=== PATIENT | male | born 1960 | race Caucasian/White ===

== ENCOUNTER 2021-07-04 18:44 | Emergency (ER) | payer OTHER ==
[~2021-07-04] VITALS: Ht 177.8 cm; Wt 68.0 kg
[2021-07-04 19:48] LABS: BASOPHILS % 0.3 % (0.0-2.0); EOSINOPHILS % 1.3 % (0.0-5.0); HEMATOCRIT. 39.9 % (42.0-52.0); HEMOGLOBIN. 13.3 g/dL (14.0-18.0); LYMPHOCYTES % 21.1 % (20.0-50.0); MEAN CORPUSCULAR HEMOGLOBIN 27.7 pg (28.0-32.0); MEAN CORPUSCULAR VOLUME 83.1 fL (80.0-94.0); MEAN PLATELET VOLUME 9.6 fl (7.4-10.4); MONOCYTES % 6.2 % (2.0-8.0); NEUTROPHILS % 71.1 % (40.0-76.0); PLATELET 262 x1000/uL (130-400); RED CELL DISTRIBUTION WIDTH 13.8 % (11.6-14.6)
[2021-07-04] MEDS ORDERED: INSULIN REGULAR (HUMULIN R) 300UNITS/3ML VIAL IV ONE (20:00)
[2021-07-04 20:10] LABS: CHLORIDE 108 mEq/L (98-107)
[2021-07-04 20:20] LABS: BETA HYDROXYBUTYRATE 0.3 mMol/L (0.0-0.3)
[2021-07-04 22:27] LABS: CLARITY URINE CLEAR (CLEAR); COLOR URINE YELLOW (YELLOW); KETONES URINE NEGATIVE (NEGATIVE); LEUKOCYTE ESTERASE URINE NEGATIVE (NEGATIVE); NITRITE URINE NEGATIVE (NEGATIVE); OCCULT BLOOD URINE NEGATIVE (NEGATIVE); PROTEIN URINE 1+ (NEGATIVE); SPECIFIC GRAVITY URINE 1.037 (1.005-1.030)
[2021-07-04 22:37] LABS: *AMPHETAMINES SCREEN URINE PRESUMTIVE POSITIVE (NEGATIVE); *BARBITURATES SCREEN URINE NEGATIVE (NEGATIVE); *BENZODIAZEPINES SCREEN URINE NEGATIVE (NEGATIVE); *COCAINE SCREEN URINE PRESUMTIVE POSITIVE (NEGATIVE)
[2021-07-04 22:38] LABS: CANNABINOID URINE SCREEN PRESUMTIVE POSITIVE (NEGATIVE); METHADONE URINE SCREEN NEGATIVE (NEGATIVE); OPIATES URINE SCREEN NEGATIVE (NEGATIVE); PHENCYCLIDINE URINE SCREEN NEGATIVE (NEGATIVE)
[2021-07-05 00:06] VITALS: BP 148/84
== END 2021-07-05 00:08 | disposition home or self-care (01) ==
LOC: ER 18:44
DX: E11.649 Type 2 diabetes mellitus with hypoglycemia without coma (principal); F19.10 Other psychoactive substance abuse, uncomplicated; R41.82 Altered mental status, unspecified; I49.9 Cardiac arrhythmia, unspecified
CPT/HCPCS: 36415; 71045; 80053; 80305; 80320; 81003; 82010; 82962; 83605; 83880; 84145; 84484; 85025; 87040; 87086; 93005; 96374; 99285; J1815; G0480

== ENCOUNTER 2021-07-10 09:09 | Emergency (ER) | payer OTHER ==
[~2021-07-10] VITALS: Ht 167.6 cm; Wt 58.0 kg
[2021-07-10] MEDS ORDERED: CEPH500C2 PO (10:54)
[2021-07-10] MEDS ORDERED: SULF1TAB48 MT (10:54)
[2021-07-10] MEDS ORDERED: ACET-2708 MT (10:55)
[2021-07-10 11:05] VITALS: BP 120/78
== END 2021-07-10 11:05 | disposition home or self-care (01) ==
LOC: ER 09:09
DX: Z48.02 Encounter for removal of sutures (principal); E11.9 Type 2 diabetes mellitus without complications; I10 Essential (primary) hypertension
CPT/HCPCS: 82962; 99282

== ENCOUNTER 2022-10-13 11:24 | Inpatient (IN) | payer MEDICAID, OTHER ==
[~2022-10-13] VITALS: Ht 165.1 cm; Wt 59.6 kg
[~2022-10-13 11:24] MED LIST: ACET-2708 MT; CEPH500C2 PO; SULF1TAB48 MT
[2022-10-13] MEDS ORDERED: IBUPROFEN 600MG TABLET PO STA (13:07)
[2022-10-13] MEDS ORDERED: SODIUM CHLORIDE 0.9% 1,000 ML IV ONE (15:15)
[2022-10-13] MEDS ORDERED: PIPERACILLIN/TAZ 3.375G PREMIX 50 ML IV NR (15:15)
[2022-10-13] MEDS ORDERED: VANCOMYCIN 1,000 MG in DEXT 5% WATER 250 ML IV NR (15:30)
[2022-10-13] MEDS ORDERED: VANCOMYCIN IV NR (15:30)
[2022-10-13] MEDS ORDERED: DEXT 5% IV NR (15:30)
[2022-10-13] MEDS ORDERED: WATER IV NR (15:30)
[2022-10-13 15:50] LABS: BASOPHILS % 0.5 % (0.0-2.0); EOSINOPHILS % 0.6 % (0.0-5.0); HEMATOCRIT. 37.8 % (42.0-52.0); HEMOGLOBIN. 12.7 g/dL (14.0-18.0); LYMPHOCYTES % 11.9 % (20.0-50.0); MEAN CORPUSCULAR HEMOGLOBIN 27.1 pg (28.0-32.0); MEAN CORPUSCULAR VOLUME 80.8 fL (80.0-94.0); MEAN PLATELET VOLUME 8.7 fl (7.4-10.4); MONOCYTES % 6.6 % (2.0-8.0); NEUTROPHILS % 80.4 % (40.0-76.0); PLATELET 417 x1000/uL (130-400); RED BLOOD CELL COUNT 4.68 mill/uL (4.7-6.1); RED CELL DISTRIBUTION WIDTH 15.3 % (11.6-14.6)
[2022-10-13 15:53] LABS: PROTHROMBIN TIME 10.7 sec (9.6-11.0)
[2022-10-13 15:54] LABS: CHLORIDE 102 mEq/L (98-107)
[2022-10-13 17:30] LABS: CLARITY URINE CLEAR (CLEAR); COLOR URINE YELLOW (YELLOW); KETONES URINE NEGATIVE (NEGATIVE); LEUKOCYTE ESTERASE URINE NEGATIVE (NEGATIVE); NITRITE URINE NEGATIVE (NEGATIVE); OCCULT BLOOD URINE NEGATIVE (NEGATIVE); PH URINE 6.5 (4.5-8.0); PROTEIN URINE 2+ (NEGATIVE)
[2022-10-13 22:00] VITALS: BP 141/64
[2022-10-13] MEDS ORDERED: DEXTROSE 50% WATER 50ML SYRINGE IV PRN (22:45)
[2022-10-14] MEDS: VANCOMYCIN 750MG PREMIX 150 ML IV SCH ×2 (00:59→11:40)
[2022-10-14] MEDS: PIPERACILLIN/TAZOBACTAM 3.375 G in DEXTROSE 5% WATER 50 ML IV SCH ×3 (05:11→21:27)
[2022-10-14] MEDS: BLOOD SUGAR DIAGNOSTIC STRIP TEST SCH ×4 (06:34→21:26)
[2022-10-14 08:00] VITALS: BP 178/96
[2022-10-14] MEDS: LISINOPRIL 20MG TABLET PO SCH (08:39)
[2022-10-14] MEDS: ENOXAPARIN 40MG/0.4ML SYR SUBCUT SCH (08:42)
[2022-10-14] MEDS: INSULIN LISPRO 100 UNITS/ML SUBCUT SCH ×4 (08:44→21:37)
[2022-10-14 08:45] LABS: BASOPHILS % 0.4 % (0.0-2.0); EOSINOPHILS % 0.8 % (0.0-5.0); HEMATOCRIT. 36.6 % (42.0-52.0); HEMOGLOBIN. 12.3 g/dL (14.0-18.0); LYMPHOCYTES % 10.5 % (20.0-50.0); MEAN CORPUSCULAR HEMOGLOBIN 27.5 pg (28.0-32.0); MEAN CORPUSCULAR VOLUME 81.7 fL (80.0-94.0); MEAN PLATELET VOLUME 9.4 fl (7.4-10.4); NEUTROPHILS % 80.3 % (40.0-76.0); PLATELET 352 x1000/uL (130-400); RED BLOOD CELL COUNT 4.48 mill/uL (4.7-6.1); RED CELL DISTRIBUTION WIDTH 15.4 % (11.6-14.6)
[2022-10-14] MEDS ORDERED: INFLUENZA VACCINE 05/PF 0.5 ML SYRINGE IM ONE (09:00)
[2022-10-14 09:20] LABS: CHLORIDE 106 mEq/L (98-107)
[2022-10-14 09:26] LABS: HDL CHOLESTEROL 41 mg/dL (40-59); LDL CHOLESTEROL 82 mg/dL (5-100)
[2022-10-14] MEDS: INSULIN GLARGINE 100 UNITS/ML SUBCUT SCH ×2 (10:34→21:36)
[2022-10-14 12:28] VITALS: BP 140/79
[2022-10-14 16:28] VITALS: BP 153/81
[2022-10-14 20:00] VITALS: BP 132/79
[2022-10-15] VITALS: BP 157/65
[2022-10-15] MEDS: VANCOMYCIN 750MG PREMIX 150 ML IV SCH ×2 (01:21→12:51)
[2022-10-15 04:00] VITALS: BP 163/74
[2022-10-15] MEDS: PIPERACILLIN/TAZOBACTAM 3.375 G in DEXTROSE 5% WATER 50 ML IV SCH ×3 (05:41→21:38)
[2022-10-15] MEDS: CLONIDINE 0.1MG TABLET PO PRN (06:02)
[2022-10-15] MEDS: BLOOD SUGAR DIAGNOSTIC STRIP TEST SCH ×4 (08:16→21:32)
[2022-10-15] MEDS: ENOXAPARIN 40MG/0.4ML SYR SUBCUT SCH (08:35)
[2022-10-15] MEDS: LISINOPRIL 20MG TABLET PO SCH ×2 (08:35→19:52)
[2022-10-15] MEDS: INSULIN LISPRO 100 UNITS/ML SUBCUT SCH ×4 (08:37→21:00)
[2022-10-15] MEDS: INSULIN GLARGINE 100 UNITS/ML SUBCUT SCH ×2 (12:53→21:45)
[2022-10-15 19:08] LABS: *AMPHETAMINES SCREEN URINE PRESUMTIVE POSITIVE (NEGATIVE); *BARBITURATES SCREEN URINE NEGATIVE (NEGATIVE); *BENZODIAZEPINES SCREEN URINE NEGATIVE (NEGATIVE); *COCAINE SCREEN URINE NEGATIVE (NEGATIVE); CANNABINOID URINE SCREEN NEGATIVE (NEGATIVE); METHADONE URINE SCREEN NEGATIVE (NEGATIVE); OPIATES URINE SCREEN NEGATIVE (NEGATIVE); PHENCYCLIDINE URINE SCREEN NEGATIVE (NEGATIVE)
[2022-10-15] MEDS: ACETAMINOPHEN 325MG TABLET PO PRN (19:52)
[2022-10-15 20:00] VITALS: BP 130/57
[2022-10-16] VITALS: BP 153/77
[2022-10-16] MEDS: VANCOMYCIN 750MG PREMIX 150 ML IV SCH ×2 (01:54→13:34)
[2022-10-16] MEDS: PIPERACILLIN/TAZOBACTAM 3.375 G in DEXTROSE 5% WATER 50 ML IV SCH ×3 (05:40→21:18)
[2022-10-16] MEDS: BLOOD SUGAR DIAGNOSTIC STRIP TEST SCH ×4 (07:20→20:29)
[2022-10-16] MEDS: INSULIN LISPRO 100 UNITS/ML SUBCUT SCH ×4 (07:50→21:18)
[2022-10-16 08:00] VITALS: BP 134/64
[2022-10-16] MEDS ORDERED: LISINOPRIL 20MG TABLET PO SCH (09:00)
[2022-10-16] MEDS: LISINOPRIL 20MG TABLET PO SCH ×2 (09:34→17:55)
[2022-10-16] MEDS: ENOXAPARIN 40MG/0.4ML SYR SUBCUT SCH (09:34)
[2022-10-16] MEDS: INSULIN GLARGINE 100 UNITS/ML SUBCUT SCH ×2 (09:38→21:17)
[2022-10-16 12:00] VITALS: BP 139/64
[2022-10-16 16:00] VITALS: BP 158/71
[2022-10-16 20:00] VITALS: BP 144/62
[2022-10-17] VITALS: BP 115/58
[2022-10-17] MEDS: VANCOMYCIN 750MG PREMIX 150 ML IV SCH ×2 (01:12→11:07)
[2022-10-17 04:00] VITALS: BP 157/73
[2022-10-17] MEDS: PIPERACILLIN/TAZOBACTAM 3.375 G in DEXTROSE 5% WATER 50 ML IV SCH ×3 (05:06→22:34)
[2022-10-17] MEDS: BLOOD SUGAR DIAGNOSTIC STRIP TEST SCH ×4 (06:40→20:43)
[2022-10-17] MEDS: INSULIN LISPRO 100 UNITS/ML SUBCUT SCH ×4 (06:45→21:19)
[2022-10-17 08:00] VITALS: BP 158/83
[2022-10-17] MEDS: LISINOPRIL 20MG TABLET PO SCH ×2 (09:01→18:30)
[2022-10-17] MEDS: ENOXAPARIN 40MG/0.4ML SYR SUBCUT SCH (09:01)
[2022-10-17] MEDS: INSULIN GLARGINE 100 UNITS/ML SUBCUT SCH ×2 (09:02→21:18)
[2022-10-17] MEDS: ACETAMINOPHEN 325MG TABLET PO PRN (11:25)
[2022-10-17 12:00] VITALS: BP 137/71
[2022-10-17 16:00] VITALS: BP 132/71
[2022-10-17 20:00] VITALS: BP 163/75
[2022-10-17] MEDS: CLONIDINE 0.1MG TABLET PO PRN (21:19)
[2022-10-18] VITALS (7 sets, daily range): BP systolic 121–182; BP diastolic 64–88
[2022-10-18] MEDS: VANCOMYCIN 750MG PREMIX 150 ML IV SCH ×2 (00:11→12:00)
[2022-10-18] MEDS: PIPERACILLIN/TAZOBACTAM 3.375 G in DEXTROSE 5% WATER 50 ML IV SCH ×3 (05:33→21:01)
[2022-10-18] MEDS: CLONIDINE 0.1MG TABLET PO PRN ×2 (05:34→21:01)
[2022-10-18] MEDS: INSULIN LISPRO 100 UNITS/ML SUBCUT SCH ×4 (06:16→21:02)
[2022-10-18] MEDS: BLOOD SUGAR DIAGNOSTIC STRIP TEST SCH ×4 (06:16→20:50)
[2022-10-18] MEDS: ENOXAPARIN 40MG/0.4ML SYR SUBCUT SCH (09:06)
[2022-10-18] MEDS: LISINOPRIL 20MG TABLET PO SCH ×2 (09:06→18:01)
[2022-10-18] MEDS: INSULIN GLARGINE 100 UNITS/ML SUBCUT SCH ×2 (09:07→21:03)
[2022-10-18] MEDS ORDERED: LISI20TA31 PO (12:23)
[2022-10-18] MEDS ORDERED: LANTUSUD SUBCUT (12:23)
[2022-10-18] MEDS ORDERED: AMOX1TAB16 MT (12:23)
[2022-10-18] MEDS ORDERED: SULF1TAB48 MT (12:23)
[2022-10-19] VITALS: BP 149/60
[2022-10-19] MEDS: VANCOMYCIN 750MG PREMIX 150 ML IV SCH (00:45)
[2022-10-19 04:00] VITALS: BP 165/81
[2022-10-19] MEDS: CLONIDINE 0.1MG TABLET PO PRN (06:18)
[2022-10-19] MEDS: INSULIN LISPRO 100 UNITS/ML SUBCUT SCH ×2 (06:19→11:57)
[2022-10-19] MEDS: BLOOD SUGAR DIAGNOSTIC STRIP TEST SCH ×2 (06:19→11:32)
[2022-10-19 08:00] VITALS: BP 122/70
[2022-10-19] MEDS: ENOXAPARIN 40MG/0.4ML SYR SUBCUT SCH (09:07)
[2022-10-19] MEDS: INSULIN GLARGINE 100 UNITS/ML SUBCUT SCH (09:07)
[2022-10-19] MEDS: LISINOPRIL 20MG TABLET PO SCH (09:08)
[2022-10-19 12:00] VITALS: BP 118/72
== END 2022-10-19 13:15 | disposition home health service (06) | DRG 344 ==
LOC: ER 11:47 → 6EST 17:45 → ENRESERV 19:30 → 7EST 10-16 10:21
PROVIDERS: ADMIT Internal Medicine; ATTEND Internal Medicine
DX: E11.621 Type 2 diabetes mellitus with foot ulcer (principal); M86.8X7 Other osteomyelitis, ankle and foot; U07.1 COVID-19; E11.52 Type 2 diabetes mellitus with diabetic peripheral angiopathy with gangrene; E44.1 Mild protein-calorie malnutrition; E11.40 Type 2 diabetes mellitus with diabetic neuropathy, unspecified; D64.9 Anemia, unspecified; E11.65 Type 2 diabetes mellitus with hyperglycemia; E11.69 Type 2 diabetes mellitus with other specified complication; G40.909 Epilepsy, unspecified, not intractable, without status epilepticus; F17.210 Nicotine dependence, cigarettes, uncomplicated; I10 Essential (primary) hypertension; F14.10 Cocaine abuse, uncomplicated; F12.10 Cannabis abuse, uncomplicated; F15.10 Other stimulant abuse, uncomplicated; M20.30 Hallux varus (acquired), unspecified foot; Z71.51 Drug abuse counseling and surveillance of drug abuser; Z68.21 Body mass index [BMI] 21.0-21.9, adult; Z79.4 Long term (current) use of insulin
CPT/HCPCS: 36415; 71045; 73660; 80048; 80053; 80061; 80202; 80305; 81003; 82962; 83036; 83605; 83615; 85025; 87070; 87077; 87186; 87426; 88311; 90686; 93923; 99285; J1650; J1815; J2543; J3370; J7060

== ENCOUNTER 2024-01-23 13:54 | Inpatient (IN) | payer MEDICAID, OTHER ==
[~2024-01-23] VITALS: Ht 167.6 cm; Wt 63.5 kg
[~2024-01-23 13:54] MED LIST changes: +AMOX1TAB16 MT; -CEPH500C2 PO; +LANTUSUD SUBCUT; +LISI20TA31 PO
[2024-01-23 14:17] VITALS: O2SAT 99
[2024-01-23 15:17] LABS: BASOPHILS % 0.3 % (0.0-2.0); EOSINOPHILS % 0.9 % (0.0-5.0); HEMATOCRIT. 29.7 % (42.0-52.0); HEMOGLOBIN. 9.6 g/dL (14.0-18.0); LYMPHOCYTES % 8.4 % (20.0-50.0); MEAN CORPUSCULAR HEMOGLOBIN 26.9 pg (28.0-32.0); MEAN CORPUSCULAR HGB CONC 32.5 g/dL (31.0-37.0); MEAN CORPUSCULAR VOLUME 82.7 fL (80.0-94.0); MEAN PLATELET VOLUME 8.3 fl (7.4-10.4); MONOCYTES % 8.3 % (2.0-8.0); NEUTROPHILS % 82.1 % (40.0-76.0); PLATELET 442 x1000/uL (130-400); RED BLOOD CELL COUNT 3.59 mill/uL (4.7-6.1); RED CELL DISTRIBUTION WIDTH 13.5 % (11.6-14.6); WHITE BLOOD COUNT 9.9 x1000/uL (4.5-11.0)
[2024-01-23 15:34] LABS: ALANINE AMINOTRANSFERASE 16 IU/L (10-49); ALBUMIN 3.2 g/dL (3.2-4.8); ASPARTATE AMINOTRANSFERASE 23 IU/L (<34); BILIRUBIN TOTAL 0.2 mg/dL (0.1-1.0); CALCIUM 8.4 mg/dL (8.7-10.4); CARBON DIOXIDE 25 mEq/L (21-32); CHLORIDE 101 mEq/L (98-107); GLUCOSE 323 mg/dL (70-105); POTASSIUM 4.2 mEq/L (3.5-5.1); PROTEIN TOTAL 7.1 g/dL (6.0-8.3); SODIUM 133 mEq/L (136-145); UREA NITROGEN BLOOD 17 mg/dL (9-23)
[2024-01-23] MEDS: SODIUM CHLORIDE 0.9% 1,000 ML IV ONE (19:58)
[2024-01-23] MEDS: CEFEPIME 1,000 MG in DEXTROSE 5% WATER 50 ML IV SCH (20:06)
[2024-01-23] MEDS ORDERED: MAGNESIUM/ALUMINUM HYDROXIDE/SIMETHICONE 30ML UDC PO PRN (22:00)
[2024-01-23] MEDS ORDERED: CLONIDINE 0.1MG TABLET PO PRN (22:00)
[2024-01-23] MEDS ORDERED: ATOR20TA65 PO (22:13)
[2024-01-23] MEDS ORDERED: AMLO10TA80 PO (22:13)
[2024-01-23 23:04] VITALS: BP 139/86; PULSE 104; RESP 16; TEMP 97.8
[2024-01-23 23:31] LABS: FOLIC ACID (FOLATE) SERUM > 20.00 ng/mL (>5.38); VITAMIN B12 SERUM 864 pg/mL (211-911)
[2024-01-24] MEDS: AMLODIPINE 5MG TABLET PO SCH (00:12)
[2024-01-24] MEDS: ATORVASTATIN CALCIUM 20MG TABLET PO SCH (00:12)
[2024-01-24 00:51] VITALS: BP 138/86; PULSE 108; RESP 18; TEMP 97.8
[2024-01-24 04:00] VITALS: BP 140/87; PULSE 105; RESP 18; TEMP 98.2
[2024-01-24 06:25] LABS: CLARITY URINE CLEAR (CLEAR); COLOR URINE YELLOW (YELLOW); GLUCOSE URINE 3+ (NEGATIVE); KETONES URINE NEGATIVE (NEGATIVE); LEUKOCYTE ESTERASE URINE NEGATIVE (NEGATIVE); NITRITE URINE NEGATIVE (NEGATIVE); OCCULT BLOOD URINE TRACE (NEGATIVE); PROTEIN URINE 2+ (NEGATIVE); SPECIFIC GRAVITY URINE 1.029 (1.005-1.030)
[2024-01-24] MEDS: INSULIN LISPRO 100 UNITS/ML SUBCUT SCH ×2 (06:39→18:54)
[2024-01-24 06:44] LABS: BACTERIA URINE NONE SEEN; SQUAMOUS EPITHELIAL CELL URINE NONE SEEN /lpf (RARE/1+); WBC URINE 0-2 /hpf (0-2)
[2024-01-24 07:00] LABS: BASOPHILS % 0.4 % (0.0-2.0); EOSINOPHILS % 0.7 % (0.0-5.0); HEMATOCRIT. 28.7 % (42.0-52.0); HEMOGLOBIN. 9.4 g/dL (14.0-18.0); LYMPHOCYTES % 11.5 % (20.0-50.0); MEAN CORPUSCULAR HGB CONC 32.8 g/dL (31.0-37.0); MEAN CORPUSCULAR VOLUME 82.3 fL (80.0-94.0); MEAN PLATELET VOLUME 8.7 fl (7.4-10.4); MONOCYTES % 7.4 % (2.0-8.0); PLATELET 433 x1000/uL (130-400); RED BLOOD CELL COUNT 3.48 mill/uL (4.7-6.1); RED CELL DISTRIBUTION WIDTH 13.4 % (11.6-14.6); WHITE BLOOD COUNT 9.5 x1000/uL (4.5-11.0)
[2024-01-24 08:00] VITALS: BP 119/83; PULSE 107; RESP 20; TEMP 99
[2024-01-24] MEDS ORDERED: CEFEPIME 1GM PREMIX 50 ML IV SCH (08:00)
[2024-01-24 08:08] LABS: ALANINE AMINOTRANSFERASE 39 IU/L (10-49); ALBUMIN 2.9 g/dL (3.2-4.8); ASPARTATE AMINOTRANSFERASE 76 IU/L (<34); BILIRUBIN TOTAL 0.2 mg/dL (0.1-1.0); CARBON DIOXIDE 21 mEq/L (21-32); CHLORIDE 104 mEq/L (98-107); CHOLESTEROL 91 mg/dL (<200); CREATININE 0.9 mg/dL (0.6-1.3); GLUCOSE 359 mg/dL (70-105); HDL CHOLESTEROL 34 mg/dL (>55); LDL CHOLESTEROL 54 mg/dL (5-100); PROTEIN TOTAL 6.6 g/dL (6.0-8.3); SODIUM 134 mEq/L (136-145); T4 FREE 0.98 ng/dL (0.89-1.76); THYROID STIMULATING HORMONE 2.13 uIU/mL (0.55-4.78); TRIGLYCERIDE 63 mg/dL (0-150); UREA NITROGEN BLOOD 18 mg/dL (9-23)
[2024-01-24] MEDS: BLOOD SUGAR DIAGNOSTIC STRIP TEST SCH (09:00)
[2024-01-24] MEDS: AMLODIPINE 10MG TABLET PO SCH (09:31)
[2024-01-24 12:00] VITALS: BP 122/75; PULSE 102; RESP 20; TEMP 99.1
[2024-01-24] MEDS ORDERED: PIPERACILLIN/TAZO 3.375G/50ML 50 ML IV SCH (13:00)
[2024-01-24] MEDS: VANCOMYCIN 1.5GM/250ML 250 ML IV SCH (13:58)
[2024-01-24] MEDS ORDERED: CEFEPIME 2,000 MG in DEXT 5% WATER 100 ML IV SCH (16:00)
[2024-01-24 19:50] VITALS: BP 126/64; PULSE 52; RESP 19; TEMP 97
[2024-01-24] MEDS: FAMOTIDINE 20MG TABLET PO SCH (20:58)
[2024-01-24] MEDS: INSULIN GLARGINE 100 UNITS/ML SUBCUT SCH (21:52)
[2024-01-24 23:38] VITALS: BP 134/78; PULSE 100; RESP 18; TEMP 97.1
[2024-01-25] MEDS ORDERED: VANCOMYCIN 1G PREMIX 200 ML IV SCH
[2024-01-25 04:45] VITALS: BP 141/72; PULSE 104; RESP 20; TEMP 97.7
[2024-01-25 07:46] LABS: HEMATOCRIT 29.1 % (42.0-52.0); HEMOGLOBIN 9.5 g/dL (14.0-18.0); MEAN CORPUSCULAR HEMOGLOBIN 26.6 pg (28.0-32.0); MEAN CORPUSCULAR HGB CONC 32.8 g/dL (31.0-37.0); MEAN CORPUSCULAR VOLUME 81.1 fL (80.0-94.0); PLATELET 464 x1000/uL (130-400); RED BLOOD CELL COUNT 3.59 mill/uL (4.7-6.1); RED CELL DISTRIBUTION WIDTH 13.6 % (11.6-14.6)
[2024-01-25 08:00] VITALS: BP 121/64; PULSE 91; RESP 18; TEMP 97.4
[2024-01-25 08:24] LABS: ALANINE AMINOTRANSFERASE 28 IU/L (10-49); ALBUMIN 2.8 g/dL (3.2-4.8); ASPARTATE AMINOTRANSFERASE 29 IU/L (<34); BILIRUBIN TOTAL 0.2 mg/dL (0.1-1.0); CALCIUM 8.1 mg/dL (8.7-10.4); CARBON DIOXIDE 24 mEq/L (21-32); CHLORIDE 103 mEq/L (98-107); CREATININE 0.9 mg/dL (0.6-1.3); GLUCOSE 323 mg/dL (70-105); POTASSIUM 3.9 mEq/L (3.5-5.1); PROTEIN TOTAL 6.5 g/dL (6.0-8.3); SODIUM 134 mEq/L (136-145); UREA NITROGEN BLOOD 19 mg/dL (9-23)
[2024-01-25] MEDS: FAMOTIDINE 20MG TABLET PO SCH (10:02)
[2024-01-25 12:00] VITALS: BP 123/59; PULSE 93; RESP 20; TEMP 97.7
[2024-01-25] MEDS: INSULIN LISPRO 100 UNITS/ML SUBCUT SCH ×2 (14:04→17:00)
[2024-01-25 16:00] VITALS: BP 121/67; PULSE 89; RESP 18; TEMP 98.3
[2024-01-25 20:00] VITALS: BP 115/62; PULSE 99; RESP 18; TEMP 98.9
[2024-01-25] MEDS: INSULIN GLARGINE 100 UNITS/ML SUBCUT SCH (21:20)
[2024-01-26] VITALS: BP 134/63; PULSE 93; RESP 18; TEMP 99.5
[2024-01-26 04:00] VITALS: BP 141/87; PULSE 94; RESP 19; TEMP 98.9
[2024-01-26 06:36] LABS: HEMATOCRIT 29.4 % (42.0-52.0); HEMOGLOBIN 9.7 g/dL (14.0-18.0); MEAN CORPUSCULAR HEMOGLOBIN 26.7 pg (28.0-32.0); MEAN CORPUSCULAR HGB CONC 33.1 g/dL (31.0-37.0); MEAN CORPUSCULAR VOLUME 80.8 fL (80.0-94.0); PLATELET 495 x1000/uL (130-400); RED BLOOD CELL COUNT 3.64 mill/uL (4.7-6.1); RED CELL DISTRIBUTION WIDTH 13.6 % (11.6-14.6); WHITE BLOOD COUNT 10.3 x1000/uL (4.5-11.0)
[2024-01-26 07:13] LABS: CALCIUM 7.9 mg/dL (8.7-10.4); CARBON DIOXIDE 25 mEq/L (21-32); CHLORIDE 104 mEq/L (98-107); CREATININE 0.8 mg/dL (0.6-1.3); POTASSIUM 3.9 mEq/L (3.5-5.1); SODIUM 136 mEq/L (136-145); UREA NITROGEN BLOOD 18 mg/dL (9-23)
[2024-01-26 08:00] VITALS: BP 140/83; PULSE 99; RESP 20; TEMP 98
[2024-01-26 08:25] LABS: GLUCOSE 165 mg/dL (70-105)
[2024-01-26 12:00] VITALS: BP 126/73; PULSE 90; RESP 18; TEMP 98
[2024-01-26 16:00] VITALS: BP 130/70; PULSE 98; RESP 18; TEMP 97.8
[2024-01-26 20:00] VITALS: BP 112/79; PULSE 107; RESP 17; TEMP 98
[2024-01-26] MEDS: INSULIN GLARGINE 100 UNITS/ML SUBCUT SCH (21:27)
[2024-01-27] VITALS: BP 116/65; PULSE 90; RESP 17; TEMP 99.3
[2024-01-27 04:00] VITALS: BP 141/82; PULSE 90; RESP 17; TEMP 98.1
[2024-01-27 06:16] LABS: HEMATOCRIT 28.7 % (42.0-52.0); HEMOGLOBIN 9.7 g/dL (14.0-18.0); MEAN CORPUSCULAR HGB CONC 33.7 g/dL (31.0-37.0); MEAN CORPUSCULAR VOLUME 80.2 fL (80.0-94.0); PLATELET 524 x1000/uL (130-400); RED BLOOD CELL COUNT 3.58 mill/uL (4.7-6.1); RED CELL DISTRIBUTION WIDTH 13.4 % (11.6-14.6); WHITE BLOOD COUNT 10.5 x1000/uL (4.5-11.0)
[2024-01-27 06:48] LABS: CALCIUM 7.7 mg/dL (8.7-10.4); CARBON DIOXIDE 26 mEq/L (21-32); CHLORIDE 102 mEq/L (98-107); CREATININE 0.8 mg/dL (0.6-1.3); GLUCOSE 260 mg/dL (70-105); PHOSPHORUS 3.1 mg/dL (2.5-4.9); POTASSIUM 4.2 mEq/L (3.5-5.1); SODIUM 134 mEq/L (136-145); UREA NITROGEN BLOOD 21 mg/dL (9-23)
[2024-01-27 08:00] VITALS: BP 149/83; PULSE 92; RESP 20; TEMP 97.9
[2024-01-27] MEDS: MAGNESIUM 2 G PREMIX 50 ML IV NR (09:00)
[2024-01-27 12:00] VITALS: BP 130/77; PULSE 88; RESP 20; TEMP 98.6
[2024-01-27 16:20] VITALS: BP 125/66; PULSE 91; RESP 20; TEMP 98.2
[2024-01-27 20:00] VITALS: BP 130/73; PULSE 95; RESP 18; TEMP 98.6
[2024-01-28 06:20] LABS: HEMATOCRIT 29.1 % (42.0-52.0); HEMOGLOBIN 9.5 g/dL (14.0-18.0); MEAN CORPUSCULAR HEMOGLOBIN 26.7 pg (28.0-32.0); MEAN CORPUSCULAR HGB CONC 32.6 g/dL (31.0-37.0); PLATELET 560 x1000/uL (130-400); RED BLOOD CELL COUNT 3.55 mill/uL (4.7-6.1); RED CELL DISTRIBUTION WIDTH 13.8 % (11.6-14.6); WHITE BLOOD COUNT 11.1 x1000/uL (4.5-11.0)
[2024-01-28 07:10] LABS: CARBON DIOXIDE 27 mEq/L (21-32); CHLORIDE 104 mEq/L (98-107); GLUCOSE 357 mg/dL (70-105); PHOSPHORUS 3.1 mg/dL (2.5-4.9); POTASSIUM 4.5 mEq/L (3.5-5.1); SODIUM 136 mEq/L (136-145); UREA NITROGEN BLOOD 24 mg/dL (9-23)
[2024-01-28 08:00] VITALS: BP 105/54; PULSE 91; RESP 20; TEMP 97.8
[2024-01-28] MEDS ORDERED: INSULIN GLARGINE 100 UNITS/ML SUBCUT SCH (08:15)
[2024-01-28 12:00] VITALS: BP 135/79; PULSE 65; RESP 20; TEMP 97.4
[2024-01-28 16:51] VITALS: BP 120/74; PULSE 92; RESP 20; TEMP 98.4
[2024-01-28] MEDS: INSULIN LISPRO 100 UNITS/ML SUBCUT SCH (16:57)
[2024-01-28 20:00] VITALS: BP 112/56; PULSE 92; RESP 20; TEMP 97.7
[2024-01-28 21:42] VITALS: PULSE 89; RESP 18
[2024-01-28] MEDS: IPRATROPIUM/ALBUTEROL 0.5-3(2.5)MG/3ML NEB HHN PRN (21:42)
[2024-01-28] MEDS: CEFEPIME 2,000 MG in DEXT 5% WATER 100 ML IV SCH (23:45)
[2024-01-29] MEDS: VANCOMYCIN 1G PREMIX 200 ML IV SCH (01:00)
[2024-01-29 04:00] VITALS: BP 126/70; PULSE 92; RESP 20; TEMP 97.5
[2024-01-29 07:13] LABS: HEMATOCRIT 26.9 % (42.0-52.0); HEMOGLOBIN 8.8 g/dL (14.0-18.0); MEAN CORPUSCULAR HEMOGLOBIN 26.5 pg (28.0-32.0); MEAN CORPUSCULAR HGB CONC 32.5 g/dL (31.0-37.0); MEAN CORPUSCULAR VOLUME 81.5 fL (80.0-94.0); PLATELET 503 x1000/uL (130-400); RED CELL DISTRIBUTION WIDTH 13.6 % (11.6-14.6); WHITE BLOOD COUNT 11.7 x1000/uL (4.5-11.0)
[2024-01-29 07:35] LABS: CALCIUM 7.6 mg/dL (8.7-10.4); CARBON DIOXIDE 26 mEq/L (21-32); CHLORIDE 103 mEq/L (98-107); CREATININE 1.1 mg/dL (0.6-1.3); GLUCOSE 302 mg/dL (70-105); POTASSIUM 4.6 mEq/L (3.5-5.1); SODIUM 134 mEq/L (136-145); UREA NITROGEN BLOOD 32 mg/dL (9-23)
[2024-01-29 08:00] VITALS: BP 124/74; PULSE 82; RESP 18; TEMP 98.4
[2024-01-29] MEDS ORDERED: BUPIVACAINE HCL/PF 0.5% (5MG/ML) 10ML ONE (09:22)
[2024-01-29] MEDS ORDERED: LIDOCAINE HCL 1% 10 MG/ML 10ML VIAL ONE ×2 (09:22→09:37)
[2024-01-29] MEDS ORDERED: PROPOFOL 200MG/20ML VIAL IV ONE (09:29)
[2024-01-29] MEDS ORDERED: FENTANYL CITRATE/PF 50MCG/ML 2ML VIAL ONE (09:29)
[2024-01-29] MEDS ORDERED: MIDAZOLAM HCL 2 MG/2 ML VIAL ONE (09:30)
[2024-01-29] MEDS ORDERED: INSULIN REGULAR (HUMULIN R) 300UNITS/3ML VIAL ONE (10:01)
[2024-01-29] MEDS ORDERED: BACITRACIN 14GM TUBE TOP ONE (10:07)
[2024-01-29] MEDS: DEXTROSE 50% WATER 50ML SYRINGE IV PRN (11:07)
[2024-01-29 12:00] VITALS: BP 105/60; PULSE 74; RESP 18; TEMP 97.7
[2024-01-29] MEDS ORDERED: IPRATROPIUM/ALBUTEROL 0.5-3(2.5)MG/3ML NEB HHN PRN (12:00)
[2024-01-29] MEDS: CEFEPIME 2,000 MG in DEXT 5% WATER 100 ML IV SCH (12:55)
[2024-01-29] MEDS: VANCOMYCIN 750MG PREMIX 150 ML IV SCH (13:18)
[2024-01-29 16:00] VITALS: BP 126/73; PULSE 86; RESP 18; TEMP 97.9
[2024-01-29] MEDS: ACETAMINOPHEN 325MG TABLET PO PRN (18:56)
[2024-01-29] MEDS ORDERED: NALOXONE HCL 0.4MG/ML VIAL IV PRN (19:15)
[2024-01-29 20:00] VITALS: BP 112/67; PULSE 82; RESP 18; TEMP 98.2
[2024-01-29] MEDS: HYDROCODONE/ACETAMINOPHEN 5/325MG TABLET PO PRN (20:45)
[2024-01-29] MEDS ORDERED: DEXTROSE 50% WATER 50ML SYRINGE IV PRN (21:15)
[2024-01-29] MEDS: INSULIN LISPRO 100 UNITS/ML SUBCUT SCH (21:35)
[2024-01-30] VITALS: BP 126/71; PULSE 76; RESP 17; TEMP 97.5
[2024-01-30 04:00] VITALS: BP 118/66; PULSE 82; RESP 20; TEMP 98.4
[2024-01-30] MEDS ORDERED: INSULIN LISPRO 100 UNITS/ML SUBCUT SCH ×2 (06:30→07:00)
[2024-01-30 07:34] LABS: HEMATOCRIT 27.5 % (42.0-52.0); HEMOGLOBIN 8.9 g/dL (14.0-18.0); MEAN CORPUSCULAR HEMOGLOBIN 27.2 pg (28.0-32.0); MEAN CORPUSCULAR HGB CONC 32.3 g/dL (31.0-37.0); MEAN CORPUSCULAR VOLUME 84.2 fL (80.0-94.0); PLATELET 474 x1000/uL (130-400); RED BLOOD CELL COUNT 3.26 mill/uL (4.7-6.1); RED CELL DISTRIBUTION WIDTH 13.8 % (11.6-14.6); WHITE BLOOD COUNT 10.3 x1000/uL (4.5-11.0)
[2024-01-30 07:56] LABS: CALCIUM 7.4 mg/dL (8.7-10.4); CARBON DIOXIDE 23 mEq/L (21-32); CHLORIDE 105 mEq/L (98-107); CREATININE 0.9 mg/dL (0.6-1.3); GLUCOSE 288 mg/dL (70-105); POTASSIUM 4.5 mEq/L (3.5-5.1); SODIUM 136 mEq/L (136-145); UREA NITROGEN BLOOD 24 mg/dL (9-23)
[2024-01-30 08:00] VITALS: BP 120/60; PULSE 87; RESP 20; TEMP 97.8
[2024-01-30 12:00] VITALS: BP 128/70; PULSE 88; RESP 19; TEMP 98
[2024-01-30 16:00] VITALS: BP 122/63; PULSE 85; RESP 19; TEMP 97.6
[2024-01-30] MEDS ORDERED: GLUCAGON,HUMAN RECOMBINANT 1MG/VIAL IM PRN (16:30)
[2024-01-30 20:00] VITALS: BP 125/65; PULSE 95; RESP 18; TEMP 98
[2024-01-30] MEDS: INSULIN LISPRO (LOW DOSE) 100 UNITS/ML SUBCUT SCH (21:08)
[2024-01-31] VITALS: BP 97/57; PULSE 90; RESP 18; TEMP 98.4
[2024-01-31 04:00] VITALS: BP 132/75; PULSE 93; RESP 20; TEMP 98
[2024-01-31] MEDS: INSULIN LISPRO 100 UNITS/ML SUBCUT SCH (06:49)
[2024-01-31] MEDS ORDERED: INSULIN LISPRO (LOW DOSE) 100 UNITS/ML SUBCUT SCH (07:00)
[2024-01-31 08:00] VITALS: BP 127/71; PULSE 90; RESP 16; TEMP 97.2
[2024-01-31] MEDS: ONDANSETRON HCL 4MG/2ML INJ IV PRN (11:25)
[2024-01-31 12:00] VITALS: BP 125/74; PULSE 89; RESP 18; TEMP 98.1
[2024-01-31 12:42] LABS: HEMATOCRIT 27.3 % (42.0-52.0); HEMOGLOBIN 8.9 g/dL (14.0-18.0); MEAN CORPUSCULAR HEMOGLOBIN 26.6 pg (28.0-32.0); MEAN CORPUSCULAR HGB CONC 32.6 g/dL (31.0-37.0); MEAN CORPUSCULAR VOLUME 81.6 fL (80.0-94.0); PLATELET 495 x1000/uL (130-400); RED BLOOD CELL COUNT 3.35 mill/uL (4.7-6.1); RED CELL DISTRIBUTION WIDTH 13.8 % (11.6-14.6); WHITE BLOOD COUNT 11.7 x1000/uL (4.5-11.0)
[2024-01-31 12:45] LABS: CALCIUM 8.1 mg/dL (8.7-10.4); CARBON DIOXIDE 25 mEq/L (21-32); CHLORIDE 106 mEq/L (98-107); CREATININE 0.9 mg/dL (0.6-1.3); GLUCOSE 189 mg/dL (70-105); POTASSIUM 4.4 mEq/L (3.5-5.1); SODIUM 137 mEq/L (136-145); UREA NITROGEN BLOOD 30 mg/dL (9-23)
[2024-01-31 16:00] VITALS: BP 130/75; PULSE 90; RESP 18; TEMP 98.4
[2024-01-31] MEDS: DAPTOMYCIN 500 MG in SODIUM CHLORIDE 0.9% 50 ML IV SCH (19:51)
[2024-01-31 19:59] VITALS: BP 147/75; PULSE 95; RESP 22; TEMP 97.3
[2024-01-31] MEDS ORDERED: VANCOMYCIN 1G PREMIX 200 ML IV SCH (21:00)
[2024-01-31] MEDS: INSULIN GLARGINE 100 UNITS/ML SUBCUT SCH (22:06)
[2024-02-01] VITALS (7 sets, daily range): BP systolic 110–156; BP diastolic 49–88; PULSE 76–90; RESP 18–20; TEMP 96.8–98.4
[2024-02-01 07:08] LABS: HEMATOCRIT 27.3 % (42.0-52.0); HEMOGLOBIN 9.1 g/dL (14.0-18.0); MEAN CORPUSCULAR HEMOGLOBIN 27.2 pg (28.0-32.0); MEAN CORPUSCULAR HGB CONC 33.3 g/dL (31.0-37.0); MEAN CORPUSCULAR VOLUME 81.6 fL (80.0-94.0); PLATELET 476 x1000/uL (130-400); RED BLOOD CELL COUNT 3.34 mill/uL (4.7-6.1); RED CELL DISTRIBUTION WIDTH 14.2 % (11.6-14.6); WHITE BLOOD COUNT 10.4 x1000/uL (4.5-11.0)
[2024-02-01 08:26] LABS: CALCIUM 7.8 mg/dL (8.7-10.4); CARBON DIOXIDE 23 mEq/L (21-32); CHLORIDE 102 mEq/L (98-107); CREATINE KINASE 74 IU/L (46-171); GLUCOSE 233 mg/dL (70-105); POTASSIUM 4.4 mEq/L (3.5-5.1); SODIUM 135 mEq/L (136-145); UREA NITROGEN BLOOD 36 mg/dL (9-23)
[2024-02-01] MEDS ORDERED: SULF1TAB48 MT (17:15)
[2024-02-01] MEDS ORDERED: INSU100I28 SQ (17:15)
[2024-02-01] MEDS ORDERED: INSHUMSS SUBCUT (17:15)
[2024-02-01] MEDS: LISINOPRIL 20MG TABLET PO SCH (17:50)
[2024-02-01] MEDS: FUROSEMIDE 40MG/4ML VIAL IVP SCH (17:50)
[2024-02-01] MEDS: INSULIN GLARGINE 100 UNITS/ML SUBCUT SCH (21:30)
[2024-02-01] MEDS ORDERED: FURO-151 PO (22:08)
[2024-02-02 04:00] VITALS: BP 140/71; PULSE 81; RESP 17; TEMP 97.6
[2024-02-02 08:00] VITALS: BP 120/69; PULSE 65; RESP 18; TEMP 97.7
[2024-02-02] MEDS: METOPROLOL SUCCINATE 50MG ER TABLET PO SCH (11:30)
[2024-02-02 12:00] VITALS: BP 122/68; PULSE 72; RESP 20; TEMP 98.1
[2024-02-02] MEDS: SPIRONOLACTONE 25MG TABLET PO SCH (13:23)
== END 2024-02-02 14:55 | disposition home health service (06) | DRG 314 ==
LOC: ER 13:54 → 4WST 20:34 → EDBEDREQTM 20:50 → EDBEDREQ 20:50
PROVIDERS: ADMIT Hospitalist; ATTEND Hospitalist
PROC: 0Y6S0Z0 Detachment at Left 2nd Toe, Complete, Open Approach (ICD-10-PCS; principal; 2024-01-29)
DX: E10.69 Type 1 diabetes mellitus with other specified complication (principal); I50.23 Acute on chronic systolic (congestive) heart failure; E10.40 Type 1 diabetes mellitus with diabetic neuropathy, unspecified; E44.0 Moderate protein-calorie malnutrition; M86.172 Other acute osteomyelitis, left ankle and foot; E10.52 Type 1 diabetes mellitus with diabetic peripheral angiopathy with gangrene; D63.8 Anemia in other chronic diseases classified elsewhere; E83.51 Hypocalcemia; E10.621 Type 1 diabetes mellitus with foot ulcer; E10.649 Type 1 diabetes mellitus with hypoglycemia without coma; L97.529 Non-pressure chronic ulcer of other part of left foot with unspecified severity; Z68.22 Body mass index [BMI] 22.0-22.9, adult; E10.65 Type 1 diabetes mellitus with hyperglycemia; B95.62 Methicillin resistant Staphylococcus aureus infection as the cause of diseases classified elsewhere; D75.839 Thrombocytosis, unspecified; L03.116 Cellulitis of left lower limb; I11.0 Hypertensive heart disease with heart failure; Z53.20 Procedure and treatment not carried out because of patient's decision for unspecified reasons; E78.5 Hyperlipidemia, unspecified; E78.00 Pure hypercholesterolemia, unspecified; F17.210 Nicotine dependence, cigarettes, uncomplicated; Z79.4 Long term (current) use of insulin; Z63.4 Disappearance and death of family member; Z79.899 Other long term (current) drug therapy; Z83.3 Family history of diabetes mellitus; Z86.14 Personal history of Methicillin resistant Staphylococcus aureus infection
CPT/HCPCS: 36415; 71045; 73620; 73721; 80048; 80053; 80061; 80202; 81003; 82550; 82607; 82746; 82962; 83036; 83605; 83735; 83880; 84100; 84145; 84439; 84443; 84681; 85025; 85027; 85651; 87070; 87075; 87076; 87077; 87186; 88304; 88311; 93306; 93922; 93970; 94640; 97162; 97535; 99285; C1893; J0692; J0878; J1815; J1940; J2250; J2405; J2543; J2704; J3010; J3370; J3475; J3490; J7030; J7060

== ENCOUNTER 2024-02-15 17:56 | Emergency (ER) | payer OTHER ==
[~2024-02-15] VITALS: Ht 167.6 cm; Wt 66.0 kg
[~2024-02-15 17:56] MED LIST changes: +AMLO10TA80 PO; -AMOX1TAB16 MT; +ATOR20TA65 PO; +FURO-151 PO; +INSHUMSS SUBCUT; +INSU100I28 SQ; -LANTUSUD SUBCUT
[2024-02-15 18:03] VITALS: BP 133/52; PULSE 87; RESP 18; TEMP 98.1; O2SAT 98
[2024-02-15 18:39] LABS: BASOPHILS % 0.3 % (0.0-2.0); EOSINOPHILS % 2.3 % (0.0-5.0); HEMATOCRIT. 30.5 % (42.0-52.0); HEMOGLOBIN. 9.6 g/dL (14.0-18.0); LYMPHOCYTES % 9.6 % (20.0-50.0); MEAN CORPUSCULAR HGB CONC 31.6 g/dL (31.0-37.0); MEAN CORPUSCULAR VOLUME 82.2 fL (80.0-94.0); MEAN PLATELET VOLUME 8.5 fl (7.4-10.4); MONOCYTES % 5.8 % (2.0-8.0); PLATELET 356 x1000/uL (130-400); RED BLOOD CELL COUNT 3.71 mill/uL (4.7-6.1); RED CELL DISTRIBUTION WIDTH 15.2 % (11.6-14.6); WHITE BLOOD COUNT 12.2 x1000/uL (4.5-11.0)
[2024-02-15 18:54] LABS: ALANINE AMINOTRANSFERASE 21 IU/L (10-49); ALBUMIN 3.3 g/dL (3.2-4.8); ASPARTATE AMINOTRANSFERASE 26 IU/L (<34); BILIRUBIN TOTAL 0.3 mg/dL (0.1-1.0); CALCIUM 7.9 mg/dL (8.7-10.4); CARBON DIOXIDE 22 mEq/L (21-32); CHLORIDE 107 mEq/L (98-107); CREATININE 1.1 mg/dL (0.6-1.3); GLUCOSE 266 mg/dL (70-105); POTASSIUM 4.2 mEq/L (3.5-5.1); PROTEIN TOTAL 8.2 g/dL (6.0-8.3); SODIUM 135 mEq/L (136-145); TROPONIN I HIGH SENSITIVITY 20 ng/L (3.0-53); UREA NITROGEN BLOOD 35 mg/dL (9-23)
== END 2024-02-16 03:44 | disposition left against medical advice (07) ==
LOC: ER 19:32
DX: S99.922A Unspecified injury of left foot, initial encounter (principal); Z53.21 Procedure and treatment not carried out due to patient leaving prior to being seen by health care provider; X58.XXXA Exposure to other specified factors, initial encounter; Y93.89 Activity, other specified; Y92.89 Other specified places as the place of occurrence of the external cause; Y99.8 Other external cause status
CPT/HCPCS: 36415; 71045; 80053; 82962; 84484; 85025; 93005; 99281

== ENCOUNTER 2024-10-04 07:56 | Emergency (ER) | payer MEDICAID ==
[~2024-10-04] VITALS: Ht 167.6 cm; Wt 74.8 kg
[~2024-10-04 07:56] MED LIST changes: +ASPI-1160 PO; +CLOP-31 PO; +COR6 PO; +EMPA10TA PO; +FERR-63 PO; -FURO-151 PO; +FURO40TA5 PO; +METF-416 PO; +SENN-362 PO; +SPIR25TA6 MT; -SULF1TAB48 MT
[2024-10-04 07:59] VITALS: O2SAT 98
[2024-10-04 10:26] VITALS: BP 154/89; PULSE 87; RESP 16; TEMP 36.83628; O2SAT 98
== END 2024-10-04 10:25 | disposition home or self-care (01) ==
LOC: ER 07:56
DX: B34.9 Viral infection, unspecified (principal); I11.0 Hypertensive heart disease with heart failure; I50.9 Heart failure, unspecified; E78.00 Pure hypercholesterolemia, unspecified; E11.9 Type 2 diabetes mellitus without complications; Z20.822 Contact with and (suspected) exposure to COVID-19; Z79.899 Other long term (current) drug therapy; Z79.4 Long term (current) use of insulin
CPT/HCPCS: 71045; 87426; 87804; 99284

== ENCOUNTER 2024-11-02 22:01 | Emergency (ER) | payer MEDICAID ==
[~2024-11-02] VITALS: Ht 167.6 cm; Wt 74.0 kg
[2024-11-02 22:31] VITALS: BP 116/79; PULSE 75; RESP 18; TEMP 98.6; O2SAT 97
[2024-11-02 23:05] LABS: CHLORIDE 104 mEq/L (98-107); POTASSIUM 4.1 mEq/L (3.5-5.1); SODIUM 137 mEq/L (136-145)
[2024-11-02 23:06] LABS: CARBON DIOXIDE 26 mEq/L (21-32)
[2024-11-02 23:11] LABS: CREATININE 1.2 mg/dL (0.6-1.3); GLUCOSE 94 mg/dL (70-105)
[2024-11-02 23:12] LABS: TROPONIN I HIGH SENSITIVITY 19 ng/L (3.0-53); UREA NITROGEN BLOOD 42 mg/dL (9-23)
[2024-11-02 23:15] LABS: BASOPHILS % 0.6 % (0.0-2.0); EOSINOPHILS % 0.8 % (0.0-5.0); HEMATOCRIT. 33.8 % (42.0-52.0); LYMPHOCYTES % 10.1 % (20.0-50.0); MEAN CORPUSCULAR HEMOGLOBIN 19.4 pg (28.0-32.0); MEAN CORPUSCULAR HGB CONC 29.5 g/dL (31.0-37.0); MEAN CORPUSCULAR VOLUME 65.6 fL (80.0-94.0); MEAN PLATELET VOLUME 8.8 fl (7.4-10.4); MONOCYTES % 5.9 % (2.0-8.0); NEUTROPHILS % 82.6 % (40.0-76.0); PLATELET 374 x1000/uL (130-400); RED BLOOD CELL COUNT 5.15 mill/uL (4.7-6.1); RED CELL DISTRIBUTION WIDTH 20.8 % (11.6-14.6); WHITE BLOOD COUNT 6.5 x1000/uL (4.5-11.0)
[2024-11-02 23:45] LABS: ADD RBC MORPHOLOGY YES; DIFFERENTIAL COMMENT 1
[2024-11-03 00:15] LABS: HYPOCHROMASIA 1+; MICROCYTOSIS 2+; PLATELET ESTIMATE NORMAL
[2024-11-03] MEDS ORDERED: ARIP2TAB66 MT (23:46)
[2024-11-03] MEDS ORDERED: FINE10TA PO (23:46)
[2024-11-03] MEDS ORDERED: TAMS-11 MT (23:46)
[2024-11-03] MEDS ORDERED: INSU100I32 SQ (23:46)
== END 2024-11-03 02:23 | disposition left against medical advice (07) ==
LOC: ER 22:01
DX: I50.9 Heart failure, unspecified (principal); E11.9 Type 2 diabetes mellitus without complications; J02.9 Acute pharyngitis, unspecified; Z79.84 Long term (current) use of oral hypoglycemic drugs; Z79.82 Long term (current) use of aspirin; Z79.4 Long term (current) use of insulin; Z79.899 Other long term (current) drug therapy
CPT/HCPCS: 36415; 71045; 80048; 83605; 83880; 84484; 85025; 93005; 99285